=== PATIENT | male | born 1985 | race African-American/Black ===

== ENCOUNTER 2020-07-22 05:01 | Emergency (ER) | payer OTHER, SELFPAY ==
[2020-07-22 05:51] VITALS: BP 109/62; PULSE 75; RESP 16; TEMP 36.3; O2SAT 96; BMI 32.3
--- NOTE | 2020-07-22 06:04 | PC.NURSE ---
Pt coming in from home, CAOx4, speaking full sentences, states that he slipped and fell down approx 2 stairs. Pt explains that his right foot got stuck between the railing as his body fell down the stairs. Pt states he heard a crack. +Slight bruising noted to lateral side of right foot. +CMS. Pt reports increased pain with movement, unable to bare weight. XRay at bedside.
--- NOTE | 2020-07-22 06:11 | XR_ITS ---
EXAMINATION: XR ANKLE, RIGHT XR FOOT, RIGHT CLINICAL INFORMATION: Pain COMPARISON: None TECHNIQUE: 3 views of the right ankle. 2 additional views of the right foot. FINDINGS: Right ankle: No fracture or dislocation. The ankle mortise is congruent. No ankle joint effusion. The soft tissues are unremarkable. Right foot: No fracture or dislocation. Alignment is anatomic. Joint spaces are maintained. The soft tissues are unremarkable. IMPRESSION: No fracture or malalignment involving the right ankle or foot.
--- NOTE | 2020-07-22 06:25 | ED.LOWEXIN ---
HPI - Extremity Injury (Lower) General Chief Complaint: Extremity Injury, Lower Stated Complaint: ANKLE/FOOT PAIN INJURY Time Seen by Provider: 07/22/20 06:25 Source: patient Mode of arrival: ambulatory Limitations: no limitations History of Present Illness HPI Narrative: yesterday slipped down the stairs and caught foot in emmy SING[place] complaint: ankle injury Onset (ago): day(s) Injury: Right: ankle Type of Injury: inversion Place: home Severity: mild Exacerbating factors: movement Related Data Previous Rx's Medication Instructions Recorded naproxen [Naprosyn] 500 mg PO BID #20 tab 07/22/20 Allergies Allergy/AdvReac Type Severity Reaction Status Date / Time No Known Allergies Allergy Verified 07/22/20 05:56 Review of Systems Constitutional: Constitutional: Reports no additional constitutional complaints Eyes: Eyes: Reports no additional eye complaints ENT: Denies dizziness Cardiovascular: Cardiovascular: Reports no additional cardiovascular complaints Respiratory: Respiratory: Reports as per HPI Gastrointestinal: Gastrointestinal: Reports no additional gastrointestinal complaints Musculoskeletal: Musculoskeletal: Reports no additional musculoskeletal complaints Integumentary/Breasts: Skin/Breast: Denies rash Neurologic: Reports system reviewed and no additional complaints, except as documented, Denies dizziness and Denies Sensory deficit (Neuro) Psychiatric: Psychiatric: Denies anxiety [facility] Past Medical History Medical History (Updated 07/22/20 @ 06:42 by Ministerio Fabian MD) No known health problems Social History Social History Advance Directives: No Advance Directives Information Provided: No Physical Exam Vital Signs and I&O and Narrative: Vital Signs and I&O: Vital Signs Temp 97.4 F 07/22/20 05:51 Pulse 76 07/22/20 06:41 Resp 16 07/22/20 06:41 BP 103/65 07/22/20 06:41 Pulse Ox 98 07/22/20 06:41 Intake & Output 07/21/20 07/21/20 07/22/20 06:59 18:59 06:59 Weight 90.718 kg Body Mass Index 32.3 Const: General: healthy appearing Nutritional Appearance: average body habitus Orientation/consciousness: oriented to person and patient oriented x3 Limitations: no limitations HENMT: Head: Yes normal to inspection Ears: external ears normal General nose exam: Normal external nose present Mouth: Normal oral and palatal mucosa present and oropharynx normal Throat: Yes posterior oropharynx normal Eyes: General: appearance normal, both eyes and all related structures Neck: Other: supple Neck: Yes normal visual inspection Chest: Chest palpation & inspection: normal inspection of the chest Resp: Auscultation: clear to auscultation bilaterally Cardio: Jugular venous distension: no JVD Rate: regular rate Rhythm: regular rhythm Heart sounds: S1 normal heart sound present and S2 normal heart sound present GI: Inspection: Yes normal to inspection Palpation (GI): Soft to palpation, nontender and No hepatosplenomegaly present Auscultation: normal bowel sounds : General: Yes no CVA tenderness Back/Spine/Pelvis: Back: no CVA tenderness Skin: General skin exam: no rashes or lesions noted Neuro: General: oriented to person and patient oriented x3 Cranial nerves: Yes CN's II-XII intact bilaterally Motor exam (neuro): 5/5 motor strength present throughout Sensory Exam: No Sensory deficit (Neuro) Extrem: Other: right ankle and base of 5th tendernsss General: Yes full ROM Psych: Appearance: grossly normal Course Course Course Narrative: place in splint no fracture Procedures Procedure Narrative Procedure Narrative: short leg splint with orthoglass applied by me, neuro vascularly intact Discharge Plan Discharge Clinical Impression: Ankle sprain and strain Instructions: Ankle Sprain (ED) Additional Instructions: ice elevation, crutch walk one week Prescriptions: New naproxen [Naprosyn] 500 mg tablet 500 mg PO BID Qty: 20 RF: 0
[2020-07-22] MEDS: Ketorolac Tromethamine 60 MG/2 ML VIAL IM (06:39)
--- NOTE | 2020-07-22 06:40 | PC.NURSE ---
Pt medicated with Toradol. MD and solid waste technician at bedside applying splint to right foot.
[2020-07-22 06:41] VITALS: BP 103/65; PULSE 76; RESP 16; O2SAT 98
== END 2020-07-22 07:04 | disposition home or self-care (01) ==
PROVIDERS: Emergency Provider Emergency Medicine
DX: S93.401A Sprain of unspecified ligament of right ankle, initial encounter (principal); M25.571 Pain in right ankle and joints of right foot; W10.9XXA Fall (on) (from) unspecified stairs and steps, initial encounter; Y93.9 Activity, unspecified; Y92.009 Unspecified place in unspecified non-institutional (private) residence as the place of occurrence of the external cause; Z79.899 Other long term (current) drug therapy
CPT/HCPCS: 29515; 73610; 73630; 96372; 99283; 99284; J1885

== ENCOUNTER 2020-07-27 00:14 | Emergency (ER) | payer OTHER, SELFPAY ==
--- NOTE | 2020-07-27 00:53 | PC.NURSE ---
NO CALL WHEN ANSWEREED
[2020-07-27 00:55] VITALS: BP 119/81; PULSE 83; RESP 16; TEMP 36.4; O2SAT 98; BMI 29.5
--- NOTE | 2020-07-27 01:59 | PC.NURSE ---
CALLED TWICE AT [phone] NO ANSWER
--- NOTE | 2020-07-27 02:51 | PC.NURSE ---
pt was initially lwt because he did not answer. pt returned to ed without realizing he could not leave ed property although he checked in. anitra guillermo aware, back to be treated. assigned to room.
--- NOTE | 2020-07-27 03:06 | ECG_ITS ---
Test Reason : CHEST PAIN Blood Pressure : / mmHG Vent. Rate : 079 BPM Atrial Rate : 079 BPM P-R Int : 162 ms QRS Dur : 078 ms QT Int : 386 ms P-R-T Axes : 059 011 022 degrees QTc Int : 442 ms Normal sinus rhythm Normal ECG No previous ECGs available Referred By: Stewart Figueredo Electronically Signed By:STEFANI MIKE MD
--- NOTE | 2020-07-27 03:06 | XR_ITS ---
EXAMINATION: XR CHEST CLINICAL INFORMATION: Shortness of breath COMPARISON: None TECHNIQUE: Frontal view of the chest was obtained. FINDINGS: The lungs are well expanded. There is no focal consolidation, edema, or effusion. No pneumothorax. The cardiomediastinal silhouette is within normal limits. No acute osseous abnormality. IMPRESSION: Clear lungs.
[2020-07-27] MEDS: Albuterol/Iprat 2.5/0.5MG 3 ML AMPUL.NEB INHALE (03:12)
--- NOTE | 2020-07-27 03:55 | ED.CHESTPAIN ---
HPI - Chest Pain General Chief Complaint: Chest Pain Stated Complaint: chest pain Time Seen by Provider: 07/27/20 02:58 Source: family Mode of arrival: ambulatory History of Present Illness HPI narrative: patient states of chest pain for several hours. Patient did check an however then went outside and seeing his car. Came back to emergency department says continues have substernal chest pain. States his hands and feet are also swelling however no fevers no chills no nausea no vomiting diarrhea. MD complaint: chest pain Quality: tightness Exacerbating factors: nothing Risk Factors Coronary artery disease risk factors: none Related Data Previous Rx's Medication Instructions Recorded naproxen [Naprosyn] 500 mg PO BID #20 tab 07/22/20 clindamycin HCl 300 mg PO TID #21 cap 07/27/20 Allergies Allergy/AdvReac Type Severity Reaction Status Date / Time No Known Allergies Allergy Verified 07/27/20 00:59 Review of Systems Review of Systems: Constitutional : No Weight loss, No Fever, No Chills, No Night Sweats, No Fatigue, No Malaise ENT/Mouth : No Hearing loss, No Ear Pain, No Nasal Congestion, No Sinus Pain, No Hoarseness, No sore throat, No Rhinorrhea, No Swallowing Difficulty Eyes: No Eye Pain, No Swelling, No Redness, No Foreign Body, No Discharge, No Vision Changes Cardiovascular : pos Chest Pain, pos SOB, no Dyspnea on Exertion, No Orthopnea, No Edema, No Palpitations Respiratory : No Cough, No Sputum, No Wheezing, No Smoke Exposure, No Dyspnea Gastrointestinal : pos Nausea, No Vomiting, No Diarrhea, No abdominal Pain, No Hematochezia, No Melena Genitourinary : No irregular bleeding, No Dysuria, No Urinary Frequency, No Hematuria, No Urinary Incontinence, No Urgency, No Flank Pain, No Urinary Flow Changes, No Hesitancy Musculoskeletal : No joint pain, No Myalgias, No Joint Swelling Skin : No Skin Lesions, No rash Neuro : No Weakness, No Numbness, No Paresthesias, No Loss of Consciousness, No Dizziness, No Headache Psych : No Anxiety/Panic, No Depression, No SI/HI/AH/VH Heme/Lymph: No Bruising, No Bleeding,No Lymphadenopathy Endocrine : No Polyuria, No Polydipsia, No Temperature Intolerance [facility] Past Medical History Medical History No known health problems Family History Family History (Updated 07/27/20 @ 05:06 by Stewart Figueredo DO) Other Family history non-contributory Social History Social History Alcohol intake: never Smoking Status: Current every day smoker Smoked in Last 30 Days: Yes Use of substances other than those prescribed or required for medical reasons: Yes Substance Use Type: Crack/Cocaine and IV Drugs Substance Use Frequency: Daily Last Used Substance: Hours (ago) Any prior treatment program specific to substance use: Yes Advance Directives: No Advance Directives Information Provided: No Physical Exam Vital Signs: Vital Signs: Vital Signs Temp Pulse Resp BP Pulse Ox 07/27/20 04:00 79 14 119/67 07/27/20 00:55 97.6 F 83 16 119/81 98 Body Mass Index 29.5 vital signs reviewed pulse ox 98% normal interpreted by me on room air Appearance: Alert. Oriented X3. No acute distress. Eyes: Pupils equal, round and reactive to light. ENT: Pharynx normal. Neck: Normal inspection. Neck supple. No lymph nodes noted. No crepitus CVS: Normal heart rate and rhythm. Pulses normal. Normal S1 and S2 Respiratory: No respiratory distress. Breath sounds normal. No Wheezing. No rales Abdomen: Soft and nontender. No rigidity. No distention. good BS x4 Skin: Skin warm and dry. Normal skin color. Normal skin turgor. Extremities: No lower extremity edema. No lower extremity edema. No Lacerations. No Rash Neuro: Oriented X 3. No motor deficit. No sensory deficit. Moving all extermities. No slurred speech. Course Course Course Narrative: 35-year-old male troponin negative EKG negative chest x-ray negative. Patient resting in bedside at discharge patient disclosed to me that he has been having mild swelling to the right hand. States it is due to IV drug abuse there on evaluation hand is slightly edematous however no erythema no abscess formation. Full range of motion without discomfort will start short range of antibiotics MDM - Chest Pain MDM Narrative Medical decision making narrative: 35-year-old male chief complaint of chest pain with negative troponin negative EKG and labs. Doubt acute coronary syndrome at this time I discussed with him costochondritis chest wall pain will discharge to primary care doctor Lab Data Attestation: I reviewed the patient's lab results. Result diagrams: 07/27/20 04:05 07/27/20 04:05 Labs: Lab Results 07/27/20 07/27/20 07/27/20 Range/Units 04:05 04:05 04:05 WBC 8.0 (4.8-10.8) X10*3/uL RBC 4.95 (4.60-5.80) X10*6/uL Hgb 12.6 L (14.0-18.0) g/dl Hct 39.9 L (42-52) % MCV 80.6 (80-98) fL MCH 25.5 L (27.0-33.0) pg MCHC 31.6 (31.0-36.0) g/dl RDW 12.9 (11.0-16.0) % Plt Count 226 (160-400) X10*3/uL MPV 9.4 (9.4-12.4) fL Immature Gran % (Auto) 0.2 (0.0-0.4) % Neut % (Auto) 66.1 (45-73) % Lymph % (Auto) 25.0 (20-40) % [facility] % (Auto) 7.1 (2-11) % Eos % (Auto) 1.2 (0-4) % Baso % (Auto) 0.4 (0-2) % Lymph # (Auto) 2.0 (1.2-4.9) X10*3/uL [facility] # (Auto) 0.6 (0.1-1.2) X10*3/uL Eos # (Auto) 0.1 (0.0-0.4) X10*3/uL Baso # (Auto) 0.0 (0.0-0.2) X10*3/uL Abs Immat Gran (auto) 0.02 (0.00-0.03) X10*3/uL Absolute Neuts (auto) 5.3 (2.0-8.3) X10*3/uL Absolute Nucleated RBC 0.000 (0.0-0.012) X10*3/uL Nucleated RBC % (auto) 0.0 (0.0-0.2) /100WBC Sodium 136 (135-145) mmol/L Potassium 3.6 (3.3-5.1) mmol/l Chloride 101 (96-108) mmol/L Carbon Dioxide 28 (22-29) mmol/L Anion Gap 11 L (12-20) BUN 16 (9-16) mg/dL Creatinine 0.92 (0.5-1.4) mg/dL Estim Creat Clear Calc 122.3 Estimated GFR > 60 Random Glucose 123 H (60-115) mg/dL Calcium 8.9 (8.4-10.2) mg/dL Total Bilirubin 0.4 (0.0-1.0) mg/dL Direct Bilirubin < 0.2 (0.0-0.5) mg/dL AST 19 (5-37) U/L ALT 22 (0-40) U/L Alkaline Phosphatase 92 (39-117) U/L Troponin I High Sens < 3.5 (<3.5-35.0) ng/L Total Protein 6.7 (6.5-8.0) g/dL Albumin 4.0 (3.5-5.0) g/dL Lipase 9 (8-78) U/L ECG Data EKG read by me. 79 beats per minute. Normal sinus rhythm. Normal axis. Normal ST T segment: Attestation: I personally reviewed and interpreted this ECG as follows: Interpretation: normal sinus rhythm. 79 beats per minute. Normal axis. No ST-T changes Discharge Plan Discharge Clinical Impression: Costalchondritis, Cellulitis of hand, right Chest pain Qualifiers: Chest pain type: unspecified Qualified Code(s): R07.9 - Chest pain, unspecified Patient Disposition: Home, Self-Care Instructions: Costochondritis (ED) Prescriptions: New clindamycin HCl 300 mg capsule 300 mg PO TID Qty: 21 RF: 0 No Action naproxen [Naprosyn] 500 mg tablet 500 mg PO BID Qty: 20 RF: 0 Referrals: [facility] [Provider Group] - 2 days
[2020-07-27 04:00] VITALS: BP 119/67; PULSE 79; RESP 14
[2020-07-27 04:10] LABS: MANUAL DIFF FLAG NO
[2020-07-27 04:11] LABS: Basophils Percent Auto 0.4 % (0-2); Eosinophils Absolute Auto 0.1 X10*3/uL (0.0-0.4); Eosinophils Percent Auto 1.2 % (0-4); Hematocrit 39.9 % (42-52); Hemoglobin 12.6 g/dl (14.0-18.0); Imm Gran Abs Auto 0.02 X10*3/uL (0.00-0.03); Imm Gran Pct Auto 0.2 % (0.0-0.4); Mean Corpuscular HGB Conc 31.6 g/dl (31.0-36.0); Mean Corpuscular Hemoglobin 25.5 pg (27.0-33.0); Mean Corpuscular Volume 80.6 fL (80-98); Mean Platelet Volume 9.4 fL (9.4-12.4); Monocytes Absolute Auto 0.6 X10*3/uL (0.1-1.2); Monocytes Percent Auto 7.1 % (2-11); Neutrophils Absolute Auto 5.3 X10*3/uL (2.0-8.3); Neutrophils Percent Auto 66.1 % (45-73); Platelet Count 226 X10*3/uL (160-400); Red Blood Count 4.95 X10*6/uL (4.60-5.80); Red Cell Distribution Width 12.9 % (11.0-16.0)
[2020-07-27 04:42] LABS: Alanine Aminotransferase 22 U/L (0-40); Alkaline Phosphatase 92 U/L (39-117); Anion Gap 11 (12-20); Aspartate Amino Transferase 19 U/L (5-37); Bilirubin Direct < 0.2 mg/dL (0.0-0.5); Bilirubin Total 0.4 mg/dL (0.0-1.0); Blood Urea Nitrogen 16 mg/dL (9-16); Calcium 8.9 mg/dL (8.4-10.2); Carbon Dioxide 28 mmol/L (22-29); Chloride 101 mmol/L (96-108); Creatinine Clr Calc Pharmacy 122.3; Estimated Glomerular Filt Rate > 60; Glucose Random 123 mg/dL (60-115); Lipase 9 U/L (8-78); Potassium 3.6 mmol/l (3.3-5.1); Sodium 136 mmol/L (135-145); Total Protein 6.7 g/dL (6.5-8.0)
[2020-07-27 04:44] LABS: Troponin-I High Sensitivity < 3.5 ng/L (<3.5-35.0)
== END 2020-07-27 05:43 | disposition home or self-care (01) ==
PROVIDERS: Emergency Provider Emergency Medicine
DX: M94.0 Chondrocostal junction syndrome [Tietze] (principal); L03.113 Cellulitis of right upper limb; F17.200 Nicotine dependence, unspecified, uncomplicated; F14.90 Cocaine use, unspecified, uncomplicated
CPT/HCPCS: 36415; 71045; 80048; 80076; 83690; 84484; 85025; 93005; 99284; 99285